=== PATIENT | female | born 1955 | race Caucasian/White ===

== ENCOUNTER → 2017-04-17 | Outpatient (CLI) | payer BC ==
[~2017-04-17] MED LIST: LRT5 PO; MEDLIST
== END | disposition home or self-care (01) ==
LOC: C.LAB1850 15:22
PROVIDERS: ATTEND Obstetrics & Gynecology
DX: Z11.3 Encounter for screening for infections with a predominantly sexual mode of transmission (principal)

== ENCOUNTER → 2017-04-17 | Outpatient (CLI) | payer BC ==
[2017-04-20 01:31] LABS: CHLAMYDIA TRACH RNA*** NOT DETECTED (NOT DETECTED); GC (NEIS GONORRHOEAE)RNA** NOT DETECTED (NOT DETECTED)
== END | disposition home or self-care (01) ==
LOC: C.LABSPEC 17:22
PROVIDERS: ATTEND Obstetrics & Gynecology
DX: Z11.3 Encounter for screening for infections with a predominantly sexual mode of transmission (principal)

== ENCOUNTER → 2017-08-31 | Outpatient (CLI) | payer BC | END | disposition home or self-care (01) | LOC: C.LABBC 12:13 | PROVIDERS: ATTEND Obstetrics & Gynecology | DX: Z11.3 Encounter for screening for infections with a predominantly sexual mode of transmission (principal) ==

== ENCOUNTER → 2017-10-03 | Outpatient (CLI) | payer BC ==
[2017-10-03 18:04] LABS: HEPATITIS B SURFACE AG NEG (NEG)
[2017-10-03 18:32] LABS: HEP C IGG 13 YRS+OLDER_RFLX NEG (NEG)
[2017-10-04 00:51] LABS: RAPID PLASMA REAGIN NONREACTIVE (NONREACT)
== END | disposition home or self-care (01) ==
LOC: C.LAB1850 16:32
DX: N39.0 Urinary tract infection, site not specified (principal); Z11.3 Encounter for screening for infections with a predominantly sexual mode of transmission

== ENCOUNTER → 2017-12-04 | Outpatient (CLI) | payer BC | END | disposition home or self-care (01) | LOC: C.LABSPEC 15:47 | PROVIDERS: ATTEND Obstetrics & Gynecology | DX: N76.0 Acute vaginitis (principal) ==

== ENCOUNTER → 2017-12-04 | Outpatient (CLI) | payer BC | END | disposition home or self-care (01) | LOC: C.PATHSPEC 16:10 | PROVIDERS: ATTEND Obstetrics & Gynecology | DX: N84.1 Polyp of cervix uteri (principal) ==

== ENCOUNTER → 2017-12-05 | Outpatient (CLI) | payer BC ==
[2017-12-05 09:35] LABS: HEMATOCRIT 37.7 % (37-47); HEMOGLOBIN 13.2 g/dL (12.0-16.0); MEAN CELL VOLUME 90.6 fL (80-100); MEAN CORPUSCULAR HEMOGLOBIN 31.7 pg (25-34); MEAN PLATELET VOLUME 10.2 fL (7.4-10.4); PLATELET COUNT 187 K/uL (130-400); RED CELL DISTRIBUTION WIDTH CV 13.4 % (11.5-14.5); RED CELL DISTRIBUTION WIDTH SD 44.3 fL (36.4-46.3); WHITE BLOOD COUNT 4.18 K/uL (4.8-10.8)
[2017-12-05 11:05] LABS: FOLLICLE STIMULAT HORMONE 90.27 IU/L
== END | disposition home or self-care (01) ==
LOC: C.LAB1850 08:38
PROVIDERS: ATTEND Obstetrics & Gynecology
DX: N95.0 Postmenopausal bleeding (principal)

== ENCOUNTER → 2018-01-31 | Outpatient (CLI) | payer BC ==
--- NOTE | 2018-01-31 20:00 | DIAGNOSTIC IMAGING REPORT ---
MRI THE LEFT FOREFOOT NO CONTRAST CLINICAL HISTORY: LT FOOT PAIN COMPARISON STUDY: Conventional radiographic study dated 01/13/2018 FINDINGS: Imaging was performed in the axial, sagittal, and coronal planes. There are no areas of marrow edema to indicate occult fracture or bone bruise. There are moderately advanced osteoarthritic changes at the level of the first metatarsal phalangeal joint. In addition there is evidence for a medial sesamoiditis. There is a small associated joint effusion. Small adjacent fluid collections, are either intra-articular, or secondary to small adjacent ganglion cysts. There are no findings to indicate osteomyelitis.. IMPRESSION: 1. Advanced arthritic changes involving the first metatarsal phalangeal joint with joint space narrowing, reactive marrow edema, osteophytic spurring, as well as a small joint effusion. There is also a medial sesamoiditis. Small adjacent fluid collections likely represent either small outpouchings of capsular fluid, or adjacent ganglion cysts. Electronically signed by: Geovanny Gutierrez M.D. 01/31/2018 7:58 PM Dictated Date/Time: 01/31/2018 7:52 PM
== END | disposition home or self-care (01) ==
LOC: C.MRI 19:05
PROVIDERS: ATTEND Podiatrist
DX: M20.22 Hallux rigidus, left foot (principal); M25.872 Other specified joint disorders, left ankle and foot